=== PATIENT | female | born 1950 | race Two or more races ===

== ENCOUNTER 2025-05-11 17:51 | Inpatient (IN) | payer OTHER ==
[~2025-05-11] VITALS: Ht 170.2 cm; Wt 116.5 kg
--- NOTE | 2025-05-11 18:03 | ED.PDOC ---
HPI Allergic reaction HPI Comments This is a 74 year old female BIBA presenting to the ED with chief complaint of tongue swelling. Patient reports that her tongue had started to swell about 1.5 hours ago, causing difficulty in swallowing at this time. Patient relays that she is unsure what caused the reaction today, but before, she had similar sym ptoms when taking Glipizide. Patient denies any SOB, urticaria, dizziness, N/V, chest pain, or itchiness. Time Seen by MD: 17:59 Reviewed Notes: Nurses Notes, Utility Mechanic Notes, Medications, Allergies Allergies: Coded Allergies: Glipizide (Verified Allergy, Intermediate, 05/11/25) Oxycodone (Verified Allergy, Unknown, 05/11/25) Information Source: Patient, Emergency Med Personnel Mode of Arrival: EMS Severity: Moderate Rash: None SOB: None Difficulty swallowing: Moderate Pruritus: None Timing: Hours Duration: Since onset Prehospital treatment: None Location: Tongue Exposed to: Unknown Developed: Difficult Swallowing, Throat Swelliing History of: Prior Similar Episodes Modyifying Factors: None Past Medical History PAST MEDICAL HISTORY: DM, High Lipids, HTN Past Medical History (Other): Bronchitis Surgical History: Appendectomy, , Tubal Ligation Surgical History (Other): Cataract surgery, neck surgery 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 Pertinent CONCRETE M[employer]ING [employer]ANT LABORER History Family History Family History: Reviewed,noncontributory to illness Social History Smoker: Non-Smoker Alcohol: Rarely Drugs: Denies Drug Use Lives In: Home Constitutional: denies: chills, diaphoresis, fatigue, fever, malaise, sweats, weakness, others EENTM: reports: others (Tongue swelling); denies: blurred vision, double vision, ear bleeding, ear discharge, ear drainage, ear pain, ear ringing, eye pain, eye redness, hearing loss, mouth pain, mouth swelling, nasal discharge, nose bleeding, nose congestion, nose pain, photophobia, tearing, throat pain, throat swelling, voice changes Respiratory: denies: cough, hemoptysis, orthopnea, SOB at rest, shortness of breath, SOB with excertion, stridor, wheezing, others Cardiovascular: denies: chest pain, dizzy spells, diaphoresis, Dyspnea on exertion, edema, irregular heart beat, left arm pain, lightheadedness, palpitations, PND, syncope, others Gastrointestinal: denies: abdomen distended, abdominal pain, blood streaked bowels, constipated, diarrhea, dysphagia, difficulty swallowing, hematemesis, melena, nausea, poor appetite, poor fluid intake, rectal bleeding, rectal pain, vomiting, others Genitourinary: denies: abnormal vagina bleeding, burning, dyspareunia, dysuria, flank pain, frequency, hematuria, incontinence, pain, , vagina discharge, urgency, others Neurological: denies: dizziness, fainting, headache, left sided numbness, left sided weakness, numbness, paresthesia, pre-existing deficit, right sided numbness, right sided weakness, seizure, speech problems, tingling, tremors, weakness, others Musculoskeletal: denies: back pain, gout, joint pain, joint swelling, muscle pain, muscle stiffness, neck pain, others Integumetry: denies: bruises, change in color, change in hair/nails, dryness, laceration, lesions, lumps, rash, wounds, others Allergic/Immunocompromised: denies: Difficulty Healing, Frequent Infections, Hives, Itching, others Hematologic/Lymphatic: denies: anemia, blood clots, easy bleeding, easy bruising, swollen glands, others Endocrine: denies: excessive hunger, excessive sweating, excessive thirst, excessive urination, flushing, intolerance to cold, intolerance to heat, unexplained weight gain, unexplained weight loss, others Psychiatric: denies: anxiety, bipolar disorder, depression, hopeless, panic disorder, schizophrenia, sleepless, suicidal, others All Other Systems: Reviewed and Negative Physical Exam General Appearance: Moderate Distress HEENT: Pharynx Normal, TMs Normal, Other (Thickened tongue) Neck: Full Range of Motion, Non-Tender, Normal, Normal Inspection Respiratory: Chest Non-Tender, Lungs Clear, No Accessory Muscle Use, No Respiratory Distress, Normal Breath Sounds Cardiovascular: No Edema, No JVD, No Murmur, No Gallop, Normal Peripheral Pulses, Regular Rate/Rhythm Breast Exam: Deferred Gastrointestinal: No Organomegaly, Non Tender, No Pulsatile Mass, Normal Bowel Sounds, Soft Genitalia: Deferred Pelvic: Deferred Rectal: Deferred Extremities: No calf tenderness, Normal capillary refill, Normal inspection, Normal range of motion, Non-tender, No pedal edema Musculoskeletal : Apperance: Normal Neurologic: Alert, business performance analyst II-XII nml as Tested, No Motor Deficits, Normal Affect, Normal Mood, No Sensory Deficits Cerebellar Function: Normal Reflexes: Normal Skin: Dry, Normal Color, Warm Lymphatic: No Adenopathy Was a procedure done? Was a procedure done?: No Differential diagnosis (all) Differential Diagnosis: Anaphylaxis, Angioedema, Drug Reaction, Urticaria X-Ray, Labs, Meds, VS Vital Signs Date Time Temp Pulse Resp B/P (MAP) Pulse Ox O2 Delivery O2 Flow Rate FiO2 05/11/25 19:30 98.8 90 12 160/101 (120) 96 98.8 05/11/25 18:32 84 14 95 Room Air* 0 21 05/11/25 18:29 98.3 84 14 180/80 (113) 95 98.3 05/11/25 17:57 98.1 87 16 179/85 100 98.1 05/11/25 17:51 113 Lab Test 05/11/25 18:27 Range/Units White Blood Count 7.5 4.4-10.8 10^3/uL Red Blood Count 5.14 4.0-5.20 10^6/uL Hemoglobin 14.0 12.2-16.2 g/dL Hematocrit 41.8 36.0-46.0 % Mean Corpuscular Volume 81.2 80.0-100.0 fL Mean Corpuscular Hemoglobin 27.3 L 28.0-32.0 pg Mean Corpuscular Hemoglobin Concent 33.6 32.0-36.0 g/dL Red Cell Distribution Width 14.1 11.8-14.3 % Platelet Count 252 140-450 10^3/uL Mean Platelet Volume 8.6 6.9-10.8 fL Neutrophils (%) (Auto) 64.0 37.0-80.0 % Lymphocytes (%) (Auto) 23.8 10.0-50.0 % Monocytes (%) (Auto) 6.4 0.0-12.0 % Eosinophils (%) (Auto) 4.6 0.0-7.0 % Basophils (%) (Auto) 1.2 0.0-2.0 % Neutrophils # (Auto) 4.8 1.6-8.6 10 ^3/uL Lymphocytes # (Auto) 1.8 0.4-5.4 10 ^3/uL Monocytes # (Auto) 0.5 0-1.3 10 ^3/uL Eosinophils # (Auto) 0.3 0-0.8 10 ^3/uL Basophils # (Auto) 0.1 0-0.2 10 ^3/uL Nucleated Red Blood Cells 0.1 % Sodium Level 141 136-145 mmol/L Potassium Level 3.6 3.5-5.1 mmol/L Chloride Level 104 98-107 mmol/L Carbon Dioxide Level 28 20-31 mmol/L Anion Gap 9 5-15 Blood Urea Nitrogen 10 9-23 mg/dL Creatinine 0.95 0.550-1.02 mg/dL Glomerular Filtration Rate Calc 64 >90 mL/min BUN/Creatinine Ratio 10.5 10.0-20.0 Serum Glucose 202 H 74-106 mg/dL Calcium Level 9.3 8.7-10.4 mg/dL Current Medications Medications (Trade) Dose Ordered Sig/Meme Route Start Time Stop Time Status Last Admin Sodium Chloride 500 ml @ 500 mls/hr Q1H ONCE IV 05/11/25 18:15 05/11/25 19:14 DC 05/11/25 18:20 Methylprednisolone Sodium Succinate (Solu Medrol) 125 mg ONCE ONCE IV 05/11/25 18:15 05/11/25 18:16 DC 05/11/25 18:20 Famotidine (Pepcid Injection) 20 mg ONCE ONCE IV 05/11/25 18:15 05/11/25 18:16 DC 05/11/25 18:20 IV Hep-Lock was established The patient was given 500 cc normal saline. The patient was given Solu-Medrol 125 mg IV push The patient was given Pepcid 20 mg IV push At this time, the CBC is within normal limits The chemistry panel is within normal limits The patient is being admitted at this time Images Reviewed?: Images reviewed and evaluated by me Time of 1ST Reevaluation: 20:14 Reevaluation 1ST: Unchanged Patient Education/Counseling: Diagnosis, Treatment, Prognosis Family Education/Counseling: No Family Present SEPSIS Sepsis Screen Physician Orders Heplock Iv (05/11/25 18:15) Steam And Gas Turbine Assembler (05/11/25 18:15) Blood Pressure (05/11/25 18:15) Pulse Oximetry (05/11/25 18:15) Vital Signs Date Time Temp Pulse Resp B/P (MAP) Pulse Ox O2 Delivery O2 Flow Rate FiO2 05/11/25 19:30 98.8 90 12 160/101 (120) 96 98.8 05/11/25 18:32 84 14 95 Room Air* 0 21 05/11/25 18:29 98.3 84 14 180/80 (113) 95 98.3 05/11/25 17:57 98.1 87 16 179/85 100 98.1 05/11/25 17:51 113 Laboratory Tests Test 05/11/25 18:27 White Blood Count 7.5 10^3/uL (4.4-10.8) Medications Medications Dose Ordered Sig/Meme Route Start Time Stop Time Status Last Admin Dose Admin Famotidine 20 mg ONCE ONCE IV 05/11/25 18:15 05/11/25 18:16 DC 05/11/25 18:20 Methylprednisolone Sodium Succinate 125 mg ONCE ONCE IV 05/11/25 18:15 05/11/25 18:16 DC 05/11/25 18:20 Sodium Chloride 500 ml @ 500 mls/hr Q1H ONCE IV 05/11/25 18:15 05/11/25 19:14 DC 05/11/25 18:20 Departure 1 Departure Time of Disposition: 20:13 Impression: Primary Impression: Severe allergic reaction Qualified Codes: T78.40XA - Allergy, unspecified, initial encounter Disposition: ADMITTED INPATIENT Admit to: Tele Condition: Fair Critical Care Note Critical Care Time?: Yes (45 min-critical care time only) Stability Stability form required: Yes Unstable for transfer: Telemetry monitoring (Telemetry monitoring required), ED Physician Assesment (Clinical assesment) Heart Score Heart Score: Heart Score Response (Comments) Value History N/A 0 EKG N/A 0 Age N/A 0 Risk Factors N/A 0 Troponin N/A 0 Total 0 I personally scribed for JOÃO AQUINO MD ([email or web address]) on 05/11/25 at 18:03. Electronically submitted by Contreras Reaves ([email or web address]). JOÃO AQUINO MD May 11, 2025 18:03
[2025-05-11] MEDS: SODIUM CHLORIDE 0.9% 500 ML IV ONE (18:20)
[2025-05-11] MEDS: methylPREDNISolone SOD SUCC 125 MG/2 ML VL IV ONE (18:20)
[2025-05-11] MEDS: FAMOTIDINE (10MG/ML) 2ML VL IV ONE (18:20)
[2025-05-11 18:32] VITALS: PULSE 84; RESP 14; O2SAT 95
[2025-05-11 18:40] LABS: Nucleated Red Blood Cells % 0.1 %
[2025-05-11 18:41] LABS: Hematocrit 41.8 % (36.0-46.0); Hemoglobin 14.0 g/dL (12.2-16.2); Mean Corpuscular Hemoglobin 27.3 pg (28.0-32.0); Mean Corpuscular Volume 81.2 fL (80.0-100.0)
[2025-05-11 18:49] LABS: Chloride 104 mmol/L (98-107); Potassium 3.6 mmol/L (3.5-5.1); Sodium 141 mmol/L (136-145)
[2025-05-11 18:51] LABS: Anion Gap 9 (5-15); Calcium 9.3 mg/dL (8.7-10.4); Carbon Dioxide 28 mmol/L (20-31)
[2025-05-11 18:56] LABS: BUN/Creatinine Ratio 10.5 (10.0-20.0); Blood Urea Nitrogen 10 mg/dL (9-23); Glucose 202 mg/dL (74-106)
[2025-05-11 20:55] VITALS: BP 180/85; PULSE 91; RESP 17; TEMP 97.8; O2SAT 93
[2025-05-11] MEDS: ONDANSETRON HCL 4 MG/2 ML VIAL IV ONE (21:34)
[2025-05-11] MEDS: MORPHINE SULFATE 4 MG/ML SYR/VIAL IV ONE (21:35)
--- NOTE | 2025-05-11 22:51 | DVHHPRES ---
History of Present Illness Resident Creating Document: LEXIE LOJA RESIDENT History of Present Illness Sandrine Calderon is a 74-year-old female with past medical history of diabetes mellitus, dyslipidemia, hypertension who came to the ED with chief complaints of swollen tongue which started yesterday , which was associated with itchiness and lip swelling. patient denies eating anything out of the ordinary, states that she took ibuprofen before having the symptoms. She also reported that she took 2 Benadryl after the tongue swelling but did not work and that patient could not swallow properly. Patient does state that she has seasonal sinusitis, allergic Patient states that she lives in the [place] but now has came here to her daughter's house. She reports having a surgery done on the right ankle on April 02, for which pins were placed and patient was receiving Dilaudid 3 times a day. As per daughter patient took Mounjaro a month ago and restarted Mounjaro yesterday increase dose to 7.5 mg. Patient is admitted for further management. Past medical history : diabetes mellitus, dyslipidemia, hypertension past surgical history: Appendectomy, , Tubal Ligation, Cataract surgery, neck surgery Family history: Reviewed, noncontributory Personal history: Denies drinking, smoking, drug use Lives with: Family PCP: Dr. Bonds Review of Systems Constitutional: No: Fever, Chills, Sweats, Weakness, Malaise, Other Eyes: No: Pain, Vision change, Conjunctivae inflammation, Eyelid inflammation, Other, Redness ENT: No: Ear pain, Ear discharge, Nose pain, Nose discharge, Nose congestion, Mouth pain, Mouth swelling, Throat pain, Throat swelling, Other Respiratory: No: Cough, Dry, Shortness of breath, SOB with excertion, Wheezing, Hemoptysis, Pleuritic Pain, Sputum, Wheezing, Other Cardiovascular: No: Chest Pain, Palpitations, Orthopnea, Paroxysmal Noc. Dyspnea, Edema, Lt Headedness, Other Gastrointestinal: No: Nausea, Vomiting, Abdominal Pain, Diarrhea, Constipation, Melena, Hematochezia, Other Genitourinary: No Dysuria, No Frequency, No Incontinence, No Hematuria, No Retention, No Other Musculoskeletal: leg pain, foot pain; No: other, neck pain, shoulder pain, arm pain, back pain, hand pain Skin: No: Rash, Lesions, Jaundice, Bruising, Other Neurological: No: Weakness, Numbness, Incoordination, Change in speech, Confusion, Seizures, Other Allergies: Coded Allergies: Glipizide (Verified Allergy, Intermediate, 05/11/25) Oxycodone (Verified Allergy, Unknown, 05/11/25) Exam Vital Signs Vital Signs Date Time Temp Pulse Resp B/P (MAP) Pulse Ox O2 Delivery O2 Flow Rate FiO2 05/11/25 22:23 88 18 186/94 05/11/25 21:30 93 05/11/25 20:55 97.8 97.8 05/11/25 19:30 Room Air* 0 21 Exam General: Patient alert and oriented in person, place and time. Patient following commands. In mild distress HEENT: Normocephalic, atraumatic, moist mucous membranes, mild tongue swelling, uvula midline, Respiratory/pulmonary: Clear lungs bilaterally, vesicular murmurs present in almost all lung barboza, no associated crackles or wheezes. Cardiovascular: Normal heart sounds S1 and S2 with no associated murmurs Abdomen: Abdomen nondistended, there is no pain to palpation in any of the abdominal quadrants, no palpable masses. Extremities: There is no peripheral edema present at the lower extremities. Peripheral Pulses: 3+ Radial (R). 3+ Radial (L). 3+ Dorsalis pedis (R). 3+ Dorsalis pedis(L) Skin: No rashes or pruritus, there is no sacral edema present at this time. Neurological: Intact cranial nerves with no focal neurologic deficits Labs/Xrays Labs Test 05/11/25 18:27 Range/Units White Blood Count 7.5 4.4-10.8 10^3/uL Red Blood Count 5.14 4.0-5.20 10^6/uL Hemoglobin 14.0 12.2-16.2 g/dL Hematocrit 41.8 36.0-46.0 % Mean Corpuscular Volume 81.2 80.0-100.0 fL Mean Corpuscular Hemoglobin 27.3 L 28.0-32.0 pg Mean Corpuscular Hemoglobin Concent 33.6 32.0-36.0 g/dL Red Cell Distribution Width 14.1 11.8-14.3 % Platelet Count 252 140-450 10^3/uL Mean Platelet Volume 8.6 6.9-10.8 fL Neutrophils (%) (Auto) 64.0 37.0-80.0 % Lymphocytes (%) (Auto) 23.8 10.0-50.0 % Monocytes (%) (Auto) 6.4 0.0-12.0 % Eosinophils (%) (Auto) 4.6 0.0-7.0 % Basophils (%) (Auto) 1.2 0.0-2.0 % Neutrophils # (Auto) 4.8 1.6-8.6 10 ^3/uL Lymphocytes # (Auto) 1.8 0.4-5.4 10 ^3/uL Monocytes # (Auto) 0.5 0-1.3 10 ^3/uL Eosinophils # (Auto) 0.3 0-0.8 10 ^3/uL Basophils # (Auto) 0.1 0-0.2 10 ^3/uL Nucleated Red Blood Cells 0.1 % Sodium Level 141 136-145 mmol/L Potassium Level 3.6 3.5-5.1 mmol/L Chloride Level 104 98-107 mmol/L Carbon Dioxide Level 28 20-31 mmol/L Anion Gap 9 5-15 Blood Urea Nitrogen 10 9-23 mg/dL Creatinine 0.95 0.550-1.02 mg/dL Glomerular Filtration Rate Calc 64 >90 mL/min BUN/Creatinine Ratio 10.5 10.0-20.0 Serum Glucose 202 H 74-106 mg/dL Calcium Level 9.3 8.7-10.4 mg/dL SEPSIS Sepsis Screen Date sepsis recognized/suspect: May 11, 2025 Time Sepsis recognized/suspect: 2019 Recent Procedure: No On Antibiotic Therapy: No Respiratory Rate >20: No Heart Rate >90: No Temp<36 C (96.8 F) or >38.3 C: No SBP <90 or MAP <65 mmHG: No New Acute Mental Status Change: No Is the patient on CPAP, BIPAP,: No Physician Orders Heplock Iv (05/11/25 18:15) Water Superintendent (05/11/25 18:15) Blood Pressure (05/11/25 18:15) Pulse Oximetry (05/11/25 18:15) Admit (05/11/25 22:48) Allergies (05/11/25 22:48) 2 Gm Sodium Diet (05/12/25 Breakfast) Ondansetron Hcl (Zofran) (05/11/25 23:00) Docusate Sodium Capsule (Colace Capsule) (05/11/25 23:00) Complete Blood Count (05/12/25 04:00) Comprehensive Metabolic Panel (05/12/25 04:00) Condition: Serious (05/11/25 22:48) Acetaminophen Tablet (Tylenol Tablet) (05/11/25 23:00) Bedrest With Bathroom Privileg (05/11/25 22:48) Vital Signs Date Time Temp Pulse Resp B/P (MAP) Pulse Ox O2 Delivery O2 Flow Rate FiO2 05/11/25 22:23 88 18 186/94 05/11/25 21:48 190/94 05/11/25 21:35 89 18 190/94 05/11/25 21:30 90 16 190/94 (126) 93 05/11/25 20:55 97.8 91 17 180/85 (116) 93 97.8 05/11/25 20:00 91 05/11/25 19:30 Room Air* 0 21 05/11/25 19:30 98.8 90 12 160/101 (120) 96 98.8 05/11/25 18:32 84 14 95 Room Air* 0 21 05/11/25 18:29 98.3 84 14 180/80 (113) 95 98.3 05/11/25 17:57 98.1 87 16 179/85 100 98.1 05/11/25 17:51 113 Laboratory Tests Test 05/11/25 18:27 White Blood Count 7.5 10^3/uL (4.4-10.8) Medications Medications Dose Ordered Sig/Meme Route Start Time Stop Time Status Last Admin Dose Admin Clonidine HCl 0.2 mg ONCE ONCE PO 05/11/25 21:45 05/11/25 21:46 DC 05/11/25 21:48 0.2 MG Famotidine 20 mg ONCE ONCE IV 05/11/25 18:15 05/11/25 18:16 DC 05/11/25 18:20 20 MG Methylprednisolone Sodium Succinate 125 mg ONCE ONCE IV 05/11/25 18:15 05/11/25 18:16 DC 05/11/25 18:20 125 MG Morphine Sulfate 4 mg ONCE ONCE IV 05/11/25 21:00 05/11/25 21:01 DC 05/11/25 21:35 4 MG Ondansetron HCl 4 mg ONCE ONCE IV 05/11/25 21:00 05/11/25 21:01 DC 05/11/25 21:34 4 MG Sodium Chloride 500 ml @ 500 mls/hr Q1H ONCE IV 05/11/25 18:15 05/11/25 19:14 DC 05/11/25 18:20 500 MLS/HR Assessment/Plan Assessment/Plan Assessment and plan # angioedema, unknown trigger # allergic reaction, known trigger - avoid lisinopril, losartan - methylprednisolone was given in the ER along with famotidine - Patient advised to avoid trigger # hypertension - continue home Meds # uncontrolled diabetes mellitus HbA1c 10.1 - moderate insulin sliding scale # hyperlipidemia - continue home meds # isolated ALP elevation - Monitor PPI prophylaxis: Protonix Goals of care addressed with the patient for more than 31 minutes: Full code status Case discussed with , patient and nurse Plan discussed with: Patient My Orders Orders - LEXIE LOJA RESIDENT Procedure Category Date Status Time Admit ADMIT 05/11/25 Transmitted 22:48 Allergies [facility] 05/11/25 Transmitted 22:48 2 Gm Sodium Diet DIET 05/12/25 Transmitted Breakfast Ondansetron Hcl PHA 05/11/25 Transmitted (Zofran) 23:00 Docusate Sodium PHA 05/11/25 Transmitted Capsule (Colace 23:00 Complete Blood Count LAB 05/12/25 Verified 04:00 Comprehensive LAB 05/12/25 Verified Metabolic Panel 04:00 Condition: Serious [facility] 05/11/25 Transmitted 22:48 Acetaminophen Tablet PHA 05/11/25 Transmitted (Tylenol Tablet) 23:00 Bedrest With Bathroom [facility] 05/11/25 Transmitted Privileg 22:48 Date of Service: May 11, 2025 Billing Provider: DONALD DE MD Common Visit Codes: [id number] INP/OBS CARE (HIGH) Secondary Visit Codes: [id number] CARE PLAN 30 MINUTES LEXIE LOJA RESIDENT May 11, 2025 22:51 DEVI GRANT RESIDENT May 12, 2025 09:24
[2025-05-11 23:00] VITALS: BP 187/70; PULSE 88; RESP 17; TEMP 97.9; O2SAT 90
[2025-05-11] MEDS ORDERED: DOCUSATE SOD 100 MG CAP PO PRN (23:00)
[2025-05-11] MEDS ORDERED: ONDANSETRON HCL 4 MG/2 ML VIAL IV PRN (23:00)
[2025-05-12] VITALS (11 sets, daily range): BP systolic 122–167; BP diastolic 62–86; PULSE 71–98; RESP 12–20; TEMP 97.7–98.4; O2SAT 89–98
[2025-05-12] MEDS: hydrALAZINE HCL 20 MG/ML VL IV PRN (01:35)
--- NOTE | 2025-05-12 02:50 | DVH ---
CHEST RADIOGRAPH Indication: rule out obstruction Technique: Single frontal view of the chest was obtained COMPARISON: None FINDINGS: Lines and Tubes: None Lungs: Diffuse increased prominence of the pulmonary vasculature and interstitium. No evidence of foc al consolidation. Pleura: No effusion. No pneumothorax. Cardiomediastinal contours: Unremarkable Bones: Unremarkable IMPRESSION: 1. Pulmonary vascular congestion.
[2025-05-12 04:14] LABS: Hematocrit 42.7 % (36.0-46.0); Hemoglobin 14.2 g/dL (12.2-16.2); Mean Corpuscular Hemoglobin 27.4 pg (28.0-32.0); Mean Corpuscular Volume 82.7 fL (80.0-100.0); Nucleated Red Blood Cells % 0.1 %
[2025-05-12 04:45] LABS: Alanine Aminotransferase 19 U/L (7-40); Albumin 3.8 g/dL (3.2-4.8); Alkaline Phosphatase 128 U/L (46-116); Anion Gap 11 (5-15); BUN/Creatinine Ratio 20.4 (10.0-20.0); Bilirubin, Total 0.5 mg/dL (0.2-1.0); Blood Urea Nitrogen 20 mg/dL (9-23); Calcium 9.2 mg/dL (8.7-10.4); Carbon Dioxide 23 mmol/L (20-31); Chloride 104 mmol/L (98-107); Potassium 4.5 mmol/L (3.5-5.1); Sodium 138 mmol/L (136-145); Total Protein 6.4 g/dL (5.7-8.2)
[2025-05-12 04:54] LABS: Glucose 323 mg/dL (74-106)
[2025-05-12] MEDS ORDERED: DEXTROSE (50%) 50ML SYRG IV PRN ×2 (08:15→13:45)
[2025-05-12 08:30] LABS: Urine Protein, UAD Negative (Negative)
--- NOTE | 2025-05-12 11:17 | DVHPN2 ---
Subjective The patient is seen and examined at bedside. Per patient she was taking losartan for long time without any allergic reaction. She also just took ibuprofen and couple hours after that her tongue swollen up to the point that she can not even brief and her throat close up. She did not know she had any allergy to ibuprofen. Reviewed: Care Plan, H&P, Labs, Medications, Previous Orders, Radiology Changes from previous H/P or p: No Changes Eyes: No Pain, No Vision change, No Conjunctivae inflammation, No Eyelid inflammation, No Other, No Redness ENT: No Ear pain, No Ear discharge, No Nose pain, No Nose discharge, No Nose congestion, No Mouth pain, No Mouth swelling, No Throat pain, No Throat swelling, No Other Cardiovascular: No Chest Pain, No Palpitations, No Orthopnea, No Paroxysmal Noc. Dyspnea, No Edema, No Lt Headedness, No Other Respiratory: No Cough, No Dry, No Shortness of breath, No SOB with excertion, No Wheezing, No Hemoptysis, No Pleuritic Pain, No Sputum, No Other Gastrointestinal: No Nausea, No Vomiting, No Abdominal Pain, No Diarrhea, No Constipation, No Melena, No Hematochezia, No Other Genitourinary: No Dysuria, No Frequency, No Incontinence, No Hematuria, No Retention, No Other Musculoskeletal: No other, No neck pain, No shoulder pain, No arm pain, No back pain, No hand pain; leg pain, foot pain Skin: No Rash, No Lesions, No Jaundice, No Bruising, No Other Objective Vitals Vital Signs Date Time Temp Pulse Resp B/P (MAP) Pulse Ox O2 Delivery O2 Flow Rate FiO2 05/12/25 09:00 97.9 97 18 135/62 (86) 89 97.9 05/11/25 19:30 Room Air* 0 21 General Appearance: Alert, Oriented X3, Cooperative, No acute distress HEENT: Atraumatic, PERRLA, EOMI, Mucous membr. moist/pink Neck: Supple Lungs: Clear to auscultation, Normal air movement Cardiovascular: Regular rate, Normal S1, Normal S2, No murmurs, Gallops, Rubs Abdomen: Normal bowel sounds, Soft, No tenderness Neuro: Cranial nerves 3-12 NL Psych/Mental Status: Mental status NL Medications Current Medications Medications Dose Ordered Sig/Meme Route Start Time Stop Time Status Last Admin Dose Admin Ondansetron HCl 4 mg Q4HP PRN IV 05/11/25 23:00 Docusate Sodium 100 mg BIDPRN PRN PO 05/11/25 23:00 Acetaminophen 650 mg Q6HP PRN PO 05/11/25 23:00 Hydralazine HCl 5 mg ONCE PRN IV 05/12/25 01:15 05/12/25 01:35 5 MG Pantoprazole Sodium 40 mg DAILY IV 05/12/25 10:00 UNV Diagnostic Test (Pha) 1 strip ACHS 05/12/25 11:30 UNV Insulin Human Regular HS SC 05/12/25 22:00 UNV Insulin Human Regular AC SC 05/12/25 11:30 UNV Dextrose 50 ml UD PRN IV 05/12/25 08:15 UNV Laboratory Results Laboratory Tests 05/12/25 03:39 Chemistry Test 05/11/25 18:27 05/12/25 03:39 Calcium Level 9.3 mg/dL (8.7-10.4) 9.2 mg/dL (8.7-10.4) Albumin 3.8 g/dL (3.2-4.8) Total Protein 6.4 g/dL (5.7-8.2) LFT Test 05/12/25 03:39 Alanine Aminotransferase (ALT) 19 U/L (7-40) Alkaline Phosphatase 128 U/L (46-116) H Aspartate Amino Transferase (AST) 16 U/L (13-40) Total Bilirubin 0.5 mg/dL (0.2-1.0) HgA1c, TSH Test 05/12/25 03:39 Hemoglobin A1c 10.1 % A1C (<5.7) H Thyroid Stimulating Hormone (TSH) 0.36 uIU/mL (0.55-4.78) L Urinalysis Test 05/12/25 08:05 Urine Color Yellow (Yellow) Urine Clarity Clear (Clear) Urine pH 5.5 (5.0-9.0) Urine Specific [place] 1.027 (1.001-1.035) Urine Protein Negative (Negative) Urine Ketones Negative (Negative) Urine Blood Negative /uL (Negative) Urine Nitrite Negative (Negative) Urine Bilirubin Negative (Negative) Urine Urobilinogen Normal mg/dL (Negative) Urine Leukocyte Esterase Negative /uL (Negative) Urine RBC 1 /hpf (0 - 4) Urine Microscopic WBC 1 /HPF (0-5) Urine Squamous Epithelial Cells Few /hpf (<5) Urine Bacteria Few /hpf (None Seen) H Urine Mucus Few (None Seen) Urine Glucose 4+ mg/dL (Normal) H Labs and/or images reviewed: Labs reviewed by me Assessment/Plan Assessment/Plan Angioedema probable related to ibuprofen/?losartan Hypertension Diabetes type 2 Hyperlipidemia Continuing current management. The patient told still swollen a little bit. I will continuing Solu-Medrol and Benadryl. We will start the patient on sliding scale insulin with moderate scale We will stop losartan and start the patient on Norvasc. We will put in a allergy with ibuprofen and possible losartan. Plan discussed with: Patient Date of Service: May 12, 2025 Billing Provider: FRANNY BETTENCOURT MD Common Visit Codes: [id number] INP/OBS CARE(HIGH) FRANNY BETTENCOURT MD May 12, 2025 11:17
[2025-05-12] MEDS ORDERED: InsuLIN REG 1unit/0.01ml Soln (100units/ml) SC SCH ×2 (11:30→22:00)
[2025-05-12] MEDS ORDERED: ACCU-CHEK COMFORT CURVE STRIP VI SCH (11:30)
[2025-05-12] MEDS ORDERED: ONDANSETRON HCL 4 MG/2 ML VIAL IV PRN (13:30)
[2025-05-12] MEDS: FLUCONAZOLE 100 MG TAB PO ONE (14:35)
[2025-05-12] MEDS: PANTOPRAZOLE 40 MG/10 ML VIAL INJ IV SCH (14:35)
[2025-05-12] MEDS: HYDROcodone-ACET 5/325MG TAB PO PRN (14:36)
[2025-05-12] MEDS: InsuLIN REG 1unit/0.01ml Soln (100units/ml) SC SCH (17:56)
[2025-05-12] MEDS: ACCU-CHEK COMFORT CURVE STRIP VI SCH (17:56)
[2025-05-12] MEDS: MORPHINE SULFATE INJ 2 MG/ml SYRG IV PRN (18:48)
[2025-05-13] VITALS (7 sets, daily range): BP systolic 114–157; BP diastolic 72–89; PULSE 83–91; RESP 18–20; TEMP 36.8; O2SAT 93–96
[2025-05-13 06:44] LABS: Hematocrit 39.7 % (36.0-46.0); Hemoglobin 13.3 g/dL (12.2-16.2); Mean Corpuscular Hemoglobin 27.2 pg (28.0-32.0); Mean Corpuscular Volume 81.1 fL (80.0-100.0); Nucleated Red Blood Cells % 0.1 %
[2025-05-13 06:56] LABS: Anion Gap 11 (5-15); Carbon Dioxide 26 mmol/L (20-31); Chloride 104 mmol/L (98-107); Sodium 141 mmol/L (136-145)
[2025-05-13 06:58] LABS: Calcium 8.7 mg/dL (8.7-10.4)
[2025-05-13 07:00] LABS: Potassium 3.4 mmol/L (3.5-5.1)
[2025-05-13 07:02] LABS: Glucose 242 mg/dL (74-106)
[2025-05-13 07:03] LABS: BUN/Creatinine Ratio 17.4 (10.0-20.0); Blood Urea Nitrogen 15 mg/dL (9-23)
[2025-05-13] MEDS: ACETAMINOPHEN 325 MG TAB PO PRN (12:55)
--- NOTE | 2025-05-13 15:05 | DVHPN2 ---
Subjective The patient is seen and examined at bedside. Per patient she was taking losartan for long time without any allergic reaction. She also just took ibuprofen and couple hours after that her tongue swollen up to the point that she can not even brief and her throat close up. She did not know she had any allergy to ibuprofen. Reviewed: Care Plan, H&P, Labs, Medications, Previous Orders, Radiology Eyes: No Pain, No Vision change, No Conjunctivae inflammation, No Eyelid inflammation, No Other, No Redness ENT: No Ear pain, No Ear discharge, No Nose pain, No Nose discharge, No Nose congestion, No Mouth pain, No Mouth swelling, No Throat pain, No Throat swelling, No Other Cardiovascular: No Chest Pain, No Palpitations, No Orthopnea, No Paroxysmal Noc. Dyspnea, No Edema, No Lt Headedness, No Other Respiratory: No Cough, No Dry, No Shortness of breath, No SOB with excertion, No Wheezing, No Hemoptysis, No Pleuritic Pain, No Sputum, No Other Gastrointestinal: No Nausea, No Vomiting, No Abdominal Pain, No Diarrhea, No Constipation, No Melena, No Hematochezia, No Other Genitourinary: No Dysuria, No Frequency, No Incontinence, No Hematuria, No Retention, No Other Musculoskeletal: No other, No neck pain, No shoulder pain, No arm pain, No back pain, No hand pain; leg pain, foot pain Skin: No Rash, No Lesions, No Jaundice, No Bruising, No Other Objective Vitals Vital Signs Date Time Temp Pulse Resp B/P (MAP) Pulse Ox O2 Delivery O2 Flow Rate FiO2 05/13/25 13:00 98.7 90 18 126/78 (94) 95 98.7 05/13/25 08:00 Nasal Cannula* 2 28 Intake/Output Intake and Output 05/13/25 07:00 Intake Total 1300 ml Balance 1300 ml Intake Oral 1300 ml # Voids 4 General Appearance: Alert, Oriented X3, Cooperative, No acute distress HEENT: Atraumatic, PERRLA, EOMI, Mucous membr. moist/pink Neck: Supple Lungs: Clear to auscultation, Normal air movement Cardiovascular: Regular rate, Normal S1, Normal S2, No murmurs, Gallops, Rubs Abdomen: Normal bowel sounds, Soft, No tenderness Neuro: Cranial nerves 3-12 NL Psych/Mental Status: Mental status NL Medications Current Medications Medications Dose Ordered Sig/Meme Route Start Time Stop Time Status Last Admin Dose Admin Docusate Sodium 100 mg BIDPRN PRN PO 05/11/25 23:00 Acetaminophen 650 mg Q6HP PRN PO 05/11/25 23:00 05/13/25 12:55 650 MG Hydralazine HCl 5 mg ONCE PRN IV 05/12/25 01:15 05/12/25 01:35 5 MG Pantoprazole Sodium 40 mg DAILY IV 05/12/25 10:00 05/13/25 09:44 40 MG Ondansetron HCl 4 mg Q6HPRN PRN IV 05/12/25 13:30 Amlodipine Besylate 5 mg DAILY PO 05/13/25 10:00 05/13/25 09:45 5 MG Morphine Sulfate 2 mg Q4HPRN PRN IV 05/12/25 13:30 05/13/25 02:50 2 MG Acetaminophen/ Hydrocodone Bitart 1 tab Q4HPRN PRN PO 05/12/25 13:30 05/12/25 20:35 1 TAB Diagnostic Test (Pha) 1 strip ACHS 05/12/25 17:00 05/13/25 12:13 1 STRIP Insulin Human Regular ACHS SC 05/12/25 17:00 05/13/25 12:36 4 UNITS Dextrose 50 ml UD PRN IV 05/12/25 13:45 Laboratory Results Laboratory Tests 05/13/25 04:27 Chemistry Test 05/13/25 04:27 Calcium Level 8.7 mg/dL (8.7-10.4) Urinalysis Test 05/12/25 08:05 Urine Color Yellow (Yellow) Urine Clarity Clear (Clear) Urine pH 5.5 (5.0-9.0) Urine Specific [place] 1.027 (1.001-1.035) Urine Protein Negative (Negative) Urine Ketones Negative (Negative) Urine Blood Negative /uL (Negative) Urine Nitrite Negative (Negative) Urine Bilirubin Negative (Negative) Urine Urobilinogen Normal mg/dL (Negative) Urine Leukocyte Esterase Negative /uL (Negative) Urine RBC 1 /hpf (0 - 4) Urine Microscopic WBC 1 /HPF (0-5) Urine Squamous Epithelial Cells Few /hpf (<5) Urine Bacteria Few /hpf (None Seen) H Urine Mucus Few (None Seen) Urine Glucose 4+ mg/dL (Normal) H Assessment/Plan Assessment/Plan Angioedema probable related to ibuprofen/?losartan Hypertension Diabetes type 2 Hyperlipidemia Continuing current management. The patient told still swollen a little bit. I will continuing Solu-Medrol and Benadryl. We will start the patient on sliding scale insulin with moderate scale We will stop losartan and start the patient on Norvasc. We will put in a allergy with ibuprofen and possible losartan. My Orders Orders - FRANNY BETTENCOURT MD Procedure Category Date Status Time Allergies [facility] 05/12/25 In Process 23:18 FRANNY BETTENCOURT MD May 13, 2025 15:05
[2025-05-13] MEDS ORDERED: METF-370 PO (15:06)
[2025-05-13] MEDS ORDERED: GLIP5TAB21 PO (15:06)
[2025-05-13] MEDS ORDERED: AML5T PO (16:49)
--- NOTE | 2025-05-13 16:51 | DVHDS2 ---
Discharge Summary Date of Admission May 11, 2025 at 22:48 Date of Discharge: May 13, 2025 Admitting Diagnosis # angioedema, unknown trigger # allergic reaction, known trigger # hypertension # uncontrolled diabetes mellitus HbA1c 10.1 # hyperlipidemia # ALP elevation Labs/Diagnostic Data: Laboratory Results Test 05/13/25 05:43 05/13/25 04:27 05/12/25 08:05 05/12/25 03:39 POC Glucose 244 mg/dl (70-106) White Blood Count 10.4 10^3/uL (4.4-10.8) Red Blood Count 4.89 10^6/uL (4.0-5.20) Hemoglobin 13.3 g/dL (12.2-16.2) Hematocrit 39.7 % (36.0-46.0) Mean Corpuscular Volume 81.1 fL (80.0-100.0) Mean Corpuscular Hemoglobin 27.2 pg (28.0-32.0) Mean Corpuscular Hemoglobin Concent 33.5 g/dL (32.0-36.0) Red Cell Distribution Width 14.2 % (11.8-14.3) Platelet Count 235 10^3/uL (140-450) Mean Platelet Volume 8.9 fL (6.9-10.8) Neutrophils (%) (Auto) 71.1 % (37.0-80.0) Lymphocytes (%) (Auto) 19.6 % (10.0-50.0) Monocytes (%) (Auto) 5.9 % (0.0-12.0) Eosinophils (%) (Auto) 2.5 % (0.0-7.0) Basophils (%) (Auto) 0.9 % (0.0-2.0) Neutrophils # (Auto) 7.4 10 ^3/uL (1.6-8.6) Lymphocytes # (Auto) 2.0 10 ^3/uL (0.4-5.4) Monocytes # (Auto) 0.6 10 ^3/uL (0-1.3) Eosinophils # (Auto) 0.3 10 ^3/uL (0-0.8) Basophils # (Auto) 0.1 10 ^3/uL (0-0.2) Nucleated Red Blood Cells 0.1 % Sodium Level 141 mmol/L (136-145) Potassium Level 3.4 mmol/L (3.5-5.1) Chloride Level 104 mmol/L (98-107) Carbon Dioxide Level 26 mmol/L (20-31) Anion Gap 11 (5-15) Blood Urea Nitrogen 15 mg/dL (9-23) Creatinine 0.86 mg/dL (0.550-1.02) Glomerular Filtration Rate Calc 72 mL/min (>90) BUN/Creatinine Ratio 17.4 (10.0-20.0) Serum Glucose 242 mg/dL (74-106) Calcium Level 8.7 mg/dL (8.7-10.4) Urine Color Yellow (Yellow) Urine Clarity Clear (Clear) Urine pH 5.5 (5.0-9.0) Urine Specific [place] 1.027 (1.001-1.035) Urine Protein Negative (Negative) Urine Ketones Negative (Negative) Urine Blood Negative /uL (Negative) Urine Nitrite Negative (Negative) Urine Bilirubin Negative (Negative) Urine Urobilinogen Normal mg/dL (Negative) Urine Leukocyte Esterase Negative /uL (Negative) Urine RBC 1 /hpf (0 - 4) Urine Microscopic WBC 1 /HPF (0-5) Urine Squamous Epithelial Cells Few /hpf (<5) Urine Bacteria Few /hpf (None Seen) Urine Mucus Few (None Seen) Urine Glucose 4+ mg/dL (Normal) Hemoglobin A1c 10.1 % A1C (<5.7) Total Bilirubin 0.5 mg/dL (0.2-1.0) Aspartate Amino Transferase (AST) 16 U/L (13-40) Alanine Aminotransferase (ALT) 19 U/L (7-40) Alkaline Phosphatase 128 U/L (46-116) Total Protein 6.4 g/dL (5.7-8.2) Albumin 3.8 g/dL (3.2-4.8) Thyroid Stimulating Hormone (TSH) 0.36 uIU/mL (0.55-4.78) Other Laboratory Tests 05/13/25 04:27 Brief Hx & Hospital Course: This is a 74 years old female with past medical history of diabetes, dyslipidemia, hypertension, surgery of the right ankle recently in April 02/2025 came into emergency department complain of shortness for breath and swollen of her tongue starting one day prior to this admission. The patient also complained of itchiness and lip swelling. The patient feel that she can not breathe. The patient apparently took ibuprofen prior to this tongue swollen. The patient took ibuprofen before and never had this reaction before. The patient took two Benadryl after that but the tongue swelling is not coming down so she decided to come to hospital for further evaluation. The patient also take losartan. The patient said she takes losartan for almost five years without any problem. The patient also was found to have hemoglobin A1c of 10.1. According to the patient she took Insmed and is worked very well for her however she left Insmed in her hometown [place] and miss a dose of it before she come down to [place] to stay with her daughter. The patient also had some season allergy and usually takes antihistamine for it. The patient did not eat any exotic food or any new fruit in her house. The patient was given Solu- Medrol IV, the patient was given Benadryl and antihistamine. The patient subsequently doing well. I change her hypertensive medication to amlodipine 5 mg one tablet p.o. daily. The patient has seemed to tolerated. The patient said that her diabetes usually controlled with Mounjaro shots. Patient had tried glipizide and metformin before but can not tolerate. In fact she thinks she allergic to glipizide. Today the patient tongue is no longer swelling. The patient is able to tolerate diet. The patient takes new hypertensive medication without any problem. I told the patient she can not take any ibuprofen or NSAIDs. Also stay away from losartan or ARB medication or SHADY inhibitor. I also give her a EpiPen. I advised her to follow up with primary care physician to get referral to curtain drier to try to find out what allergy she had. Activity as tolerated. Diet per home diet. Recommend low-salt low-cholesterol carb controlled diet. I also called and talk with her daughter because the patient said sometimes she forgets what she discuss about with me. Physical exam: HEENT: Normocephalic atraumatic pupils equal react to light and accommodation. Extraocular muscles intact, conjunctiva pink, oropharynx moist, no thrush, no exudate. Lymphatic: No lymphadenopathy Cardiovascular exam: S1, S2 was heard. No murmurs, rubs, gallops Lung: Clear on auscultation bilaterally, no wheeze, rale, rhonchi. GI: Abdominal soft, nondistended, nontenderness, positive bowel sounds. Extremity: No crepitus, cyanosis, edema. Pedal pulses present bilateral. Full range of motion. Skin: Normal turgor, no rash. Psych: Alert, oriented x3. Neurology: No focal deficits, cranial nerve II to XII grossly intact. This medical document was created using an electronic medical record system with [employer] direct computerized dictation system. Although this document has been carefully reviewed, there may still be some phonetic and typographical errors. These areas are purely typographical due to imperfections of the software programs, and do not reflect any compromise in the patient's medical care. Condition at Discharge: Stable Final Diagnosis/Problems List # angioedema, probable secondary to ibuprofen and/or losartan # allergic reaction, known trigger # hypertension # uncontrolled diabetes mellitus HbA1c 10.1 # hyperlipidemia # ALP elevation Discharge Disposition: Home Discharge Instruct/Medications Diet: Cardiac 2g Na,low cholest Activity: No Restrictions, As Tolerated Follow Up/Referral: pcp 1-2 weeks curtain drier per schedule Medications: stop ibuprofen stop losartan resume all other meds Scheduled Amlodipine Besylate (Norvasc Tablet), 1 TAB PO DAILY Scheduled PRN Epinephrine (Anaphylaxis) (Auvi-Q), 0.1 MG IJ O PRN Hydrocodone-Acetaminophen (Hydrocodone Bitartrate/AC 5-325 mg), 1 TAB PO Q4HPRN PRN Discharge Statement: "Patient was advised to return to the ER or call 911 if any headaches, dizziness, shortness of breath, chest pain, abdominal pain, bleeding, fevers, or worsening of medical condition. Patient was counseled about treatment plan, medications, possible side effects, patientverbalized understanding. All questions were answered to the best of my ability. This discharge took greater then 30 minutes in planning, reviewing documentation, counseling the patient, and discussing with other team members." ASSESSMENT ASSESSMENT Assessment angioedema Date of Service: May 13, 2025 Billing Provider: FRANNY BETTENCOURT MD Common Visit Codes: 60470-PFM/OBS DISCH DAY >30min FRANNY BETTENCOURT MD May 13, 2025 16:51
[2025-05-13] MEDS ORDERED: EPIN0.1I11 IJ (16:52)
[2025-05-13] MEDS ORDERED: HYDR-4902 PO (16:57)
[2025-05-14] MEDS ORDERED: glipiZIDE 5 MG TAB PO SCH (07:00)
== END 2025-05-13 19:50 | disposition home or self-care (01) | DRG 916 ==
LOC: EDBD 17:51 → ER 17:51 → OVERFLOW 22:48 → TELE-WESTW 05-12 15:45
PROVIDERS: ADMIT Internal Medicine; ATTEND Internal Medicine
DX: T78.3XXA Angioneurotic edema, initial encounter (principal); B37.31 Acute candidiasis of vulva and vagina; E11.9 Type 2 diabetes mellitus without complications; E78.5 Hyperlipidemia, unspecified; I10 Essential (primary) hypertension; T39.315A Adverse effect of propionic acid derivatives, initial encounter; T78.49XA Other allergy, initial encounter; Z79.899 Other long term (current) drug therapy; Y84.8 Other medical procedures as the cause of abnormal reaction of the patient, or of later complication, without mention of misadventure at the time of the procedure; Y92.89 Other specified places as the place of occurrence of the external cause
CPT/HCPCS: 36415; 71045; 80048; 80053; 81001; 82962; 83036; 84443; 85025; 96361; 96374; 96375; 99291; G0378; J1815; J2405; J2470; J3490

== ENCOUNTER 2025-05-16 12:43 | Inpatient (IN) | payer OTHER ==
[~2025-05-16] VITALS: Ht 170.2 cm; Wt 100.0 kg
[~2025-05-16 12:43] MED LIST: AML5T PO; EPIN0.1I11 IJ; HYDR-4902 PO
--- NOTE | 2025-05-16 14:02 | ED.PDOC ---
Musculoskeletal HPI Comments This is a 74-year-old female with past medical history of hypertension, dyslipidemia and diabetes type [address] Spencer office due to bilateral lower limb swelling. Per patient, she had left ankle fracture on April 07, subsequently underwent open surgery (put stent and screw), had removed sutures around 2 weeks back, and had gradually developed bilateral lower limb swelling. She has also developed a wound on the left ankle (on sutures area), with scant amount of purulent discharge. She reports of bilateral lower limb discomfort and pain (more on the left side) which worsens with mobility. She denies fever, chest pain, shortness of breath, nausea, vomiting, or any bowel/bladder habit changes. Chief Complaint: Lower Extremity Time Seen by MD: 12:44 Reviewed Notes: Nurses Notes Allergies: Coded Allergies: Glipizide (Verified Allergy, Intermediate, 05/11/25) Ibuprofen (Verified Allergy, Unknown, 05/13/25) PER DR SG BLANTON VIA PHONE Losartan (Verified Allergy, Unknown, 05/13/25) PER DR SG BLANTON VIA PHONE Oxycodone (Verified Allergy, Unknown, 05/11/25) Home Meds Active Scripts Hydrocodone-Acetaminophen (Hydrocodone Bitartrate/AC 5-325 mg) 1 Tab Tab, 1 TAB PO Q4HPRN PRN, #20 TAB Prov:FRANNY BETTENCOURT MD 05/13/25 Epinephrine (Anaphylaxis) (Auvi-Q) 0.1 Mg/0.1 Ml Inj, 0.1 MG IJ O PRN for 1 Day, #1 INJ Prov:FRANNY BETTENCOURT MD 05/13/25 Amlodipine Besylate (NORVASC TABLET) 5 Mg Tb, 1 TAB PO DAILY, #30 TAB 5 Refills Prov:FRANNY BETTENCOURT MD 05/13/25 Mode of Arrival: Wheelchair Past Medical History PAST MEDICAL HISTORY: DM, High Lipids, HTN Surgical History: Appendectomy, , Tubal Ligation [employer]EWEL[employer] History: No Pertinent [employer] History Family History Family History: Reviewed,noncontributory to illness Social History Smoker: Non-Smoker Alcohol: Rarely Drugs: Denies Drug Use Lives In: Home Physical Exam General Appearance: No Apparent Distress, Normal HEENT: Normal ENT Inspection, Pharynx Normal, TMs Normal Neck: Full Range of Motion, Non-Tender, Normal, Normal Inspection Respiratory: Chest Non-Tender, Lungs Clear, No Accessory Muscle Use, No Respiratory Distress, Normal Breath Sounds Cardiovascular: No Edema, No JVD, No Murmur, No Gallop, Normal Peripheral Pulses, Regular Rate/Rhythm Breast Exam: Deferred Gastrointestinal: No Organomegaly, Non Tender, No Pulsatile Mass, Normal Bowel Sounds, Soft Genitalia: Deferred Pelvic: Deferred Rectal: Deferred Extremities: Calf tenderness, Normal capillary refill, Pedal edema, Swelling, Tender, Other (There is a small 1 x 2 cm open wound on the lateral surface of left ankle, with scant amount of purulent discharge) Musculoskeletal : Apperance: Normal Neurologic: Alert, business insight and analytics manager II-XII nml as Tested, No Motor Deficits, Normal Affect, Normal Mood, No Sensory Deficits Cerebellar Function: Normal Reflexes: Normal Skin: Dry, Normal Color, Warm Lymphatic: No Adenopathy Was a procedure done? Was a procedure done?: No Differential Diagnosis EXT Differential Diagnosis: Cellulitis, Deep Vein Thrombosis, Dislocation, Contusion, Arthritis X-Ray, Labs, Meds, VS Vital Signs Date Time Temp Pulse Resp B/P (MAP) Pulse Ox O2 Delivery O2 Flow Rate FiO2 05/16/25 12:47 98.0 82 16 143/92 96 98.0 Lab Test 05/16/25 14:00 Range/Units White Blood Count 7.3 # 4.4-10.8 10^3/uL Red Blood Count 5.33 H 4.0-5.20 10^6/uL Hemoglobin 14.5 12.2-16.2 g/dL Hematocrit 42.9 36.0-46.0 % Mean Corpuscular Volume 80.5 80.0-100.0 fL Mean Corpuscular Hemoglobin 27.2 L 28.0-32.0 pg Mean Corpuscular Hemoglobin Concent 33.7 32.0-36.0 g/dL Red Cell Distribution Width 14.4 H 11.8-14.3 % Platelet Count 253 140-450 10^3/uL Mean Platelet Volume 8.3 6.9-10.8 fL Neutrophils (%) (Auto) 64.5 37.0-80.0 % Lymphocytes (%) (Auto) 23.1 10.0-50.0 % Monocytes (%) (Auto) 5.6 0.0-12.0 % Eosinophils (%) (Auto) 5.6 0.0-7.0 % Basophils (%) (Auto) 1.2 0.0-2.0 % Neutrophils # (Auto) 4.7 1.6-8.6 10 ^3/uL Lymphocytes # (Auto) 1.7 0.4-5.4 10 ^3/uL Monocytes # (Auto) 0.4 0-1.3 10 ^3/uL Eosinophils # (Auto) 0.4 0-0.8 10 ^3/uL Basophils # (Auto) 0.1 0-0.2 10 ^3/uL Nucleated Red Blood Cells 0.0 % Prothrombin Time 10.9 9.3-11.8 sec Prothrombin Time INR 1.03 0.9-1.15 Sodium Level 141 136-145 mmol/L Potassium Level 3.8 3.5-5.1 mmol/L Chloride Level 107 98-107 mmol/L Carbon Dioxide Level 26 20-31 mmol/L Anion Gap 8 5-15 Blood Urea Nitrogen 7 L 9-23 mg/dL Creatinine 0.74 0.550-1.02 mg/dL Glomerular Filtration Rate Calc 86 >90 mL/min BUN/Creatinine Ratio 9.5 L 10.0-20.0 Serum Glucose 169 H 74-106 mg/dL Calcium Level 9.2 8.7-10.4 mg/dL Total Bilirubin 1.0 0.2-1.0 mg/dL Aspartate Amino Transferase (AST) 15 13-40 U/L Alanine Aminotransferase (ALT) 18 7-40 U/L Alkaline Phosphatase 125 H 46-116 U/L Total Protein 7.2 5.7-8.2 g/dL Albumin 4.1 3.2-4.8 g/dL Current Medications Medications (Trade) Dose Ordered Sig/Meme Route Start Time Stop Time Status Last Admin Acetaminophen (Tylenol Tablet) 650 mg ONCE ONCE PO 05/16/25 14:15 05/16/25 14:16 DC 05/16/25 14:56 Time of 1ST Reevaluation: 15:50 Reevaluation 1ST: Unchanged Patient Education/Counseling: Diagnosis, Treatment, Prognosis, Need For Follow Up Family Education/Counseling: No Family Present Comments Patient came to the hospital due to bilateral lower limb swelling and left leg p ain. Patient was vitally stable. Ultrasound performed ruled out DVT. CT scan showed left leg soft tissue swelling but could not exclude osteomyelitis. Patient was given acetaminophen Wound culture and wound consult ordered. Patient will be admitted for possible osteomyelitis, further workup and treatment. Departure 1 Departure Time of Disposition: 15:51 Impression: Primary Impression: Osteomyelitis Additional Impression: Cellulitis Disposition: ADMITTED INPATIENT Admit to: Med Surg Condition: Guarded Critical Care Note Critical Care Time?: Yes (45 min-critical care time only) Stability Stability form required: No Heart Score Heart Score: Heart Score Response (Comments) Value History N/A 0 EKG N/A 0 Age N/A 0 Risk Factors N/A 0 Troponin N/A 0 Total 0 CLARA CAMPOS RESDIENT May 16, 2025 14:02
[2025-05-16 14:14] LABS: Hematocrit 42.9 % (36.0-46.0); Hemoglobin 14.5 g/dL (12.2-16.2); Mean Corpuscular Hemoglobin 27.2 pg (28.0-32.0); Mean Corpuscular Volume 80.5 fL (80.0-100.0); Nucleated Red Blood Cells % 0.0 %
[2025-05-16 14:27] LABS: INR 1.03 (0.9-1.15); Prothrombin Time 10.9 sec (9.3-11.8)
[2025-05-16 14:28] LABS: Alanine Aminotransferase 18 U/L (7-40); Albumin 4.1 g/dL (3.2-4.8); Anion Gap 8 (5-15); BUN/Creatinine Ratio 9.5 (10.0-20.0); Bilirubin, Total 1.0 mg/dL (0.2-1.0); Calcium 9.2 mg/dL (8.7-10.4); Carbon Dioxide 26 mmol/L (20-31); Potassium 3.8 mmol/L (3.5-5.1); Sodium 141 mmol/L (136-145); Total Protein 7.2 g/dL (5.7-8.2)
[2025-05-16 14:30] LABS: Alkaline Phosphatase 125 U/L (46-116); Blood Urea Nitrogen 7 mg/dL (9-23); Chloride 107 mmol/L (98-107); Glucose 169 mg/dL (74-106)
--- NOTE | 2025-05-16 14:52 | DVH ---
Technique: Real-time ultrasound imaging, with color Doppler and compression of the the bilateral com mon femoral vein, femoral vein, greater saphenous vein, and popliteal vein. Indication: swollen Comparison: None Findings: There is normal compressibility and flow augmentation in all of the imaged deep veins. There are no f illing defects. Impression: No evidence of DVT in the the bilateral lower extremities.
[2025-05-16] MEDS: ACETAMINOPHEN 325 MG TAB PO ONE (14:56)
--- NOTE | 2025-05-16 15:19 | DVH ---
INDICATION: open wound, abscess osteomyelititis COMPARISON: None TECHNIQUE: CT of the right was performed without contrast. Volume transverse images were obtained and reconstructed in multiple planes using bone and soft tissue algorithms. CONTRAST: None Radiation Dose Information: CT Dose: CTDI volume is 7.75 mGy. Dose-length product is 204.15 mGy*cm FINDINGS: The alignment is normal. The joint spaces are normal. Internal fixation screws noted through the medial malleolus and along the distal fibula fixation plat e multiple internal fixation screws. The soft tissues demonstrate subcutaneous edema from the distal tibia and fibula region IMPRESSION: 1. No acute fracture or dislocation. 2. Subcutaneous edema from the distal tibia and fibula region. 3. Internal fixation screws noted through the medial malleolus and along the distal fibula fixation p late multiple internal fixation screws. 4. There are no bony erosions. 5. Can not exclude presence of osteomyelitis.
[2025-05-16] MEDS ORDERED: VANCOMYCIN PER PHARMACY 0 MG IV SCH (16:00)
[2025-05-16] MEDS: SODIUM CHLORIDE 0.9% 1,000 ML IV ONE (16:00)
[2025-05-16] MEDS: VANCOMYCIN 1GM/250ML KIT 250 ML IV SCH (19:17)
[2025-05-17] MEDS ORDERED: VANCOMYCIN PER PHARMACY 0 MG IV SCH (04:00)
[2025-05-17] MEDS ORDERED: ONDANSETRON HCL 4 MG/2 ML VIAL IV PRN (04:00)
[2025-05-17] MEDS ORDERED: DEXTROSE (50%) 50ML SYRG IV PRN (04:00)
--- NOTE | 2025-05-17 04:12 | DVHHP2 ---
History of Present Illness Reason for Visit: Leg swelling History of Present Illness 74-year-old female presents for evaluation of bilateral lower extremity swelling. Patient had a follow up appointment today. Patient reports [place] She reports noticing redness and an open wound to her left ankle. She was seen today and advised to present to the emergency department for further evaluation. Patient denies fever or chills. Past Medical History Hypertension, dyslipidemia and diabetes mellitus Past Surgical History , appendectomy, left ankle surgery Family History Noncontributory Smoke: No ALCOHOL: none Drugs: None Lives: with Family Review of Systems Review of Systems Review of systems are currently negative otherwise addressed in HPI. Allergies: Coded Allergies: Glipizide (Verified Allergy, Intermediate, 05/11/25) Ibuprofen (Verified Allergy, Unknown, 05/13/25) PER DR SG BLANTON VIA PHONE Losartan (Verified Allergy, Unknown, 05/13/25) PER DR SG BLANTON VIA PHONE Oxycodone (Verified Allergy, Unknown, 05/11/25) Medications Current Medications Medications Dose Ordered Sig/Meme Route Start Time Stop Time Status Last Admin Dose Admin Vancomycin HCl 0 ml @ 0 mls/hr UD IV 05/16/25 16:00 Exam Vital Signs Vital Signs Date Time Temp Pulse Resp B/P (MAP) Pulse Ox O2 Delivery O2 Flow Rate FiO2 05/17/25 03:47 98.9 97 18 157/87 (110) 97 98.9 Exam Gen: 74-year-old female in mild distress Skin: Warm, dry, normal color and texture, no rash. HEENT: Normocephalic atraumatic, mucous membranes moist and pink. Neck: Cervical and supraclavicular nodes normal without enlargement, trachea is midline, thyroid gland is normal without masses. Pulmonary: Clear to auscultation and percussion bilaterally. Cardiac: Regular rate and rhythm. No murmur Abdomen: Soft, nontender, nondistended, bowel sounds present all 4 quadrants, no guarding, no rigidity, no organomegaly. Extremities: No cyanosis, clubbing, left ankle lateral wound Neuro: Cranial nerves II through XII grossly intact, normal affect and speech, no focal motor deficits. Labs/Xrays ORDERING PHYSICIAN: CLARA CAMPOS RESDIJAD PROCEDURE(s): BLDVT - BiLat Lower DVT REASON: swollen ORDER NUMBER(s): [id number], ACCESSION NUMBER(s): [id number] Technique: Real-time ultrasound imaging, with color Doppler and compression of the the bilateral common femoral vein, femoral vein, greater saphenous vein, and popliteal vein. Indication: swollen Comparison: None Findings: There is normal compressibility and flow augmentation in all of the imaged deep veins. There are no filling defects. Impression: No evidence of DVT in the the bilateral lower extremities. RING PHYSICIAN: CLARA CAMPOS RESDIJAD PROCEDURE(s): LANCT - CT L ANKLE WO CONTRAST REASON: open wound, abscess? osteomyelititis? ORDER NUMBER(s): [id number], ACCESSION NUMBER(s): [id number] INDICATION: open wound, abscess osteomyelititis COMPARISON: None TECHNIQUE: CT of the right was performed without contrast. Volume transverse images were obtained and reconstructed in multiple planes using bone and soft tissue algorithms. CONTRAST: None Radiation Dose Information: CT Dose: CTDI volume is 7.75 mGy. Dose-length product is 204.15 mGy*cm FINDINGS: The alignment is normal. The joint spaces are normal. Internal fixation screws noted through the medial malleolus and along the distal fibula fixation plate multiple internal fixation screws. The soft tissues demonstrate subcutaneous edema from the distal tibia and fibula region IMPRESSION: 1. No acute fracture or dislocation. 2. Subcutaneous edema from the distal tibia and fibula region. 3. Internal fixation screws noted through the medial malleolus and along the distal fibula fixation plate multiple internal fixation screws. 4. There are no bony erosions. 5. Can not exclude presence of osteomyelitis. Labs Test 05/16/25 14:00 Range/Units White Blood Count 7.3 # 4.4-10.8 10^3/uL Red Blood Count 5.33 H 4.0-5.20 10^6/uL Hemoglobin 14.5 12.2-16.2 g/dL Hematocrit 42.9 36.0-46.0 % Mean Corpuscular Volume 80.5 80.0-100.0 fL Mean Corpuscular Hemoglobin 27.2 L 28.0-32.0 pg Mean Corpuscular Hemoglobin Concent 33.7 32.0-36.0 g/dL Red Cell Distribution Width 14.4 H 11.8-14.3 % Platelet Count 253 140-450 10^3/uL Mean Platelet Volume 8.3 6.9-10.8 fL Neutrophils (%) (Auto) 64.5 37.0-80.0 % Lymphocytes (%) (Auto) 23.1 10.0-50.0 % Monocytes (%) (Auto) 5.6 0.0-12.0 % Eosinophils (%) (Auto) 5.6 0.0-7.0 % Basophils (%) (Auto) 1.2 0.0-2.0 % Neutrophils # (Auto) 4.7 1.6-8.6 10 ^3/uL Lymphocytes # (Auto) 1.7 0.4-5.4 10 ^3/uL Monocytes # (Auto) 0.4 0-1.3 10 ^3/uL Eosinophils # (Auto) 0.4 0-0.8 10 ^3/uL Basophils # (Auto) 0.1 0-0.2 10 ^3/uL Nucleated Red Blood Cells 0.0 % Prothrombin Time 10.9 9.3-11.8 sec Prothrombin Time INR 1.03 0.9-1.15 Sodium Level 141 136-145 mmol/L Potassium Level 3.8 3.5-5.1 mmol/L Chloride Level 107 98-107 mmol/L Carbon Dioxide Level 26 20-31 mmol/L Anion Gap 8 5-15 Blood Urea Nitrogen 7 L 9-23 mg/dL Creatinine 0.74 0.550-1.02 mg/dL Glomerular Filtration Rate Calc 86 >90 mL/min BUN/Creatinine Ratio 9.5 L 10.0-20.0 Serum Glucose 169 H 74-106 mg/dL Calcium Level 9.2 8.7-10.4 mg/dL Total Bilirubin 1.0 0.2-1.0 mg/dL Aspartate Amino Transferase (AST) 15 13-40 U/L Alanine Aminotransferase (ALT) 18 7-40 U/L Alkaline Phosphatase 125 H 46-116 U/L Total Protein 7.2 5.7-8.2 g/dL Albumin 4.1 3.2-4.8 g/dL SEPSIS Sepsis Screen Date sepsis recognized/suspect: May 16, 2025 Time Sepsis recognized/suspect: 1251 Recent Procedure: No On Antibiotic Therapy: No Respiratory Rate >20: No Heart Rate >90: No Temp<36 C (96.8 F) or >38.3 C: No SBP <90 or MAP <65 mmHG: No New Acute Mental Status Change: No Is the patient on CPAP, BIPAP,: No Physician Orders * Orthopedic Consult (05/17/25 03:58) Ceftriaxone Ivpb Rocephin (05/17/25 09:00) Vancomycin (05/17/25 04:00) Consistent Carb(Ccho)Diabetes (05/17/25 Breakfast) Glucose Blood (Accu-Chek Comfort Curve T (05/17/25 07:00) Mild Sliding Scale (05/17/25 07:00) Dextrose 50% Syringe (05/17/25 04:00) Admit (05/17/25 03:58) Hydrocodone-Acet 5/325mg Tab (Denhoff 5/32 (05/17/25 04:00) Ondansetron Hcl (Zofran) (05/17/25 04:00) Enoxaparin Sodium (Lovenox) (05/17/25 10:00) Condition: Stable (05/17/25 03:58) Acetaminophen Tablet (Tylenol Tablet) (05/17/25 04:00) Bedrest With Bathroom Privileg (05/17/25 03:58) Basic Metabolic Panel (05/17/25 03:58) Complete Blood Count (05/17/25 03:58) Vital Signs Date Time Temp Pulse Resp B/P (MAP) Pulse Ox O2 Delivery O2 Flow Rate FiO2 05/17/25 03:47 98.9 97 18 157/87 (110) 97 98.9 05/16/25 20:17 99 20 126/76 (93) 98 Medications Medications Dose Ordered Sig/Meme Route Start Time Stop Time Status Last Admin Dose Admin Vancomycin HCl 250 ml @ 250 mls/hr Q1H IV 05/16/25 16:30 05/16/25 18:29 DC 05/16/25 19:17 250 MLS/HR Assessment/Plan Assessment/Plan Assessment Left lower extremity cellulitis with open wound ? Left ankle osteomyelitis Diabetes mellitus Hypertension Plan Admit the patient to Med surge to the hospitalist Orthopedic consultation Wound consult Rocephin/vancomycin Wound culture pending Resume home medications Continue treatment per orders. Plan discussed with: Patient My Orders Orders - TOI SAVAGE Procedure Category Date Status Time * Orthopedic Consult CONS 05/17/25 Verified 03:58 Ceftriaxone Ivpb PHA 05/17/25 Verified Rocephin 09:00 Vancomycin PHA 05/17/25 Verified 04:00 Consistent DIET 05/17/25 Verified Carb(Ccho)Diabetes Breakfast Glucose Blood PHA 05/17/25 Verified (Accu-Chek Comfort 07:00 Mild Sliding Scale PHA 05/17/25 Verified 07:00 Dextrose 50% Syringe PHA 05/17/25 Verified 04:00 Admit ADMIT 05/17/25 Verified 03:58 Hydrocodone-Acet PHA 05/17/25 Verified 5/325mg Tab (Denhoff 04:00 Ondansetron Hcl PHA 05/17/25 Verified (Zofran) 04:00 Enoxaparin Sodium PHA 05/17/25 Verified (Lovenox) 10:00 Condition: Stable HARRY 05/17/25 Verified 03:58 Acetaminophen Tablet PHA 05/17/25 Verified (Tylenol Tablet) 04:00 Bedrest With Bathroom HARRY 05/17/25 Verified Privileg 03:58 Basic Metabolic Panel LAB 05/17/25 Verified 03:58 Complete Blood Count LAB 05/17/25 Verified 03:58 Date of Service: May 17, 2025 Billing Provider: TOI SAVAGE Common Visit Codes: [id number] INP/OBS CARE (MOD) TOI SAVAGE May 17, 2025 04:12
--- NOTE | 2025-05-17 04:35 | DVH ---
CHEST RADIOGRAPH Indication: sob Technique: Single frontal view of the chest was obtained COMPARISON: XY CHEST XRAY 1 VIEW on DOS: 05/12/25 FINDINGS: Lines and Tubes: None Lungs: Clear Pleura: No effusion. No pneumothorax. Cardiomediastinal contours: Unremarkable Bones: Unremarkable IMPRESSION: 1. No acute disease.
[2025-05-17] MEDS: VANCOMYCIN 1GM/250ML KIT 250 ML IV SCH ×2 (04:47→17:50)
[2025-05-17 06:10] LABS: Hematocrit 44.9 % (36.0-46.0); Hemoglobin 14.5 g/dL (12.2-16.2); Mean Corpuscular Hemoglobin 26.7 pg (28.0-32.0); Mean Corpuscular Volume 82.7 fL (80.0-100.0); Nucleated Red Blood Cells % 0.1 %
[2025-05-17 06:17] LABS: Potassium 4.0 mmol/L (3.5-5.1); Sodium 141 mmol/L (136-145)
[2025-05-17 06:18] LABS: Anion Gap 10 (5-15); Calcium 8.8 mg/dL (8.7-10.4); Carbon Dioxide 23 mmol/L (20-31)
[2025-05-17 06:23] LABS: BUN/Creatinine Ratio 7.0 (10.0-20.0)
[2025-05-17 06:26] LABS: Blood Urea Nitrogen 6 mg/dL (9-23); Chloride 108 mmol/L (98-107); Glucose 304 mg/dL (74-106)
[2025-05-17] MEDS: ACCU-CHEK COMFORT CURVE STRIP VI SCH (07:00)
[2025-05-17] MEDS: InsuLIN REG 1unit/0.01ml Soln (100units/ml) SC SCH (07:00)
--- NOTE | 2025-05-17 09:11 | DVH ---
CLINICAL INDICATION: pain/swelling/ h/o surgery TECHNIQUE: 2 radiographic views of the left ankle were obtained. Comparison: None FINDINGS/IMPRESSION: There is no evidence of acute fracture or dislocation. The visualized joint space is well maintained. Post-surgical changes in the distal tibia and distal f ibula. Soft tissue swelling about the left ankle. Small plantar calcaneal enthesophyte. The alignment is anatomical. There is no radiopaque foreign body.
--- NOTE | 2025-05-17 09:53 | DVHINCON2 ---
Date of service: May 17, 2025 Referring Physician ED Reason for Consultation left ankle postop infection History of Present Illness 74-year-old female presents for evaluation of bilateral lower extremity swelling. Patient was seen in urgent care. Patient reports having a left ankle ORIF on 04/10 in [place]. She also complains of right ankle pain since she suffered fall prior to surgery. States no eval right side yet. She reports noticing redness and an open wound to her left ankle. She was seen today and advised to present to the emergency department for further evaluation. Patient denies fever or chills. States her diabetes is normally controlled at A1c of 6 but recently she has had difficulty Past Medical History Hypertension, dyslipidemia and diabetes mellitus Past Surgical History , appendectomy, left ankle surgery Family History Noncontributory Smoke: No ALCOHOL: none Drugs: None Lives: with Family. She is resident of [place] but came here to children's house to help her recover form injury. Family History: Patient reports no known family medical history. Allergies: Coded Allergies: Glipizide (Verified Allergy, Intermediate, 05/11/25) Ibuprofen (Verified Allergy, Unknown, 05/13/25) PER DR SG BLANTON VIA PHONE Losartan (Verified Allergy, Unknown, 05/13/25) PER DR SG BLANTON VIA PHONE Oxycodone (Verified Allergy, Unknown, 05/11/25) Allergies metformin - tongue swelling Home Meds Active Scripts Hydrocodone-Acetaminophen (Hydrocodone Bitartrate/AC 5-325 mg) 1 Tab Tab, 1 TAB PO Q4HPRN PRN, #20 TAB Prov:FRANNY BETTENCOURT MD 05/13/25 Epinephrine (Anaphylaxis) (Auvi-Q) 0.1 Mg/0.1 Ml Inj, 0.1 MG IJ O PRN for 1 Day, #1 INJ Prov:FRANNY BETTENCOURT MD 05/13/25 Amlodipine Besylate (NORVASC TABLET) 5 Mg Tb, 1 TAB PO DAILY, #30 TAB 5 Refills Prov:FRANNY BETTENCOURT MD 05/13/25 Current Medications Current Medications Medications (Trade) Dose Ordered Sig/Meme Route PRN Reason Start Time Stop Time Status Last Admin Vancomycin HCl 0 ml @ 0 mls/hr UD IV 05/16/25 16:00 Vancomycin HCl 250 ml @ 250 mls/hr Q1H IV 05/16/25 16:30 05/16/25 18:29 DC 05/16/25 19:17 Ceftriaxone Sodium 50 ml @ 100 mls/hr DAILY@09 IV 05/17/25 09:00 Vancomycin HCl 0 ml @ 0 mls/hr UD IV 05/17/25 04:00 05/17/25 04:15 DC Diagnostic Test (Pha) (Accu-Chek Comfort Curve T) 1 strip ACHS 05/17/25 07:00 Insulin Human Regular (InsuLIN R) ACHS SC 05/17/25 07:00 Dextrose 50 ml UD PRN IV Blood Sugar LESS THAN 60 05/17/25 04:00 Acetaminophen/ Hydrocodone Bitart (Ripley 5/325MG Tab) 1 tab Q4HP PRN PO MODERATE PAIN (4-6 PAIN SCALE) 05/17/25 04:00 Ondansetron HCl (Zofran) 4 mg Q4HP PRN IV NAUSEA / VOMITING 05/17/25 04:00 Enoxaparin Sodium (Lovenox) 40 mg DAILY SC 05/17/25 10:00 Acetaminophen (Tylenol Tablet) 650 mg Q6HP PRN PO PAIN SCALE 1-3 OR TEMP>100.4 05/17/25 04:00 Amlodipine Besylate (Norvasc Tablet) 5 mg DAILY PO 05/17/25 10:00 Vancomycin HCl 250 ml @ 250 mls/hr Q1H IV 05/17/25 04:45 05/17/25 05:44 DC 05/17/25 04:47 Review of Systems neg 10 point review except as above Vital Signs Vital Signs Date Time Temp Pulse Resp B/P (MAP) Pulse Ox O2 Delivery O2 Flow Rate FiO2 05/17/25 03:47 98.9 97 18 157/87 (110) 97 98.9 Physical Exam Well-developed well-nourished female in no acute distress Alert and oriented x4 Examination of her lower extremities reveals she has moderate edema of the right foot and ankle and mild edema of the left foot and ankle Right ankle skin is intact no erythema Limited range of motion with pain No instability on stress Diffuse tenderness medially and laterally Intact sensation and pulses intact Left ankle skin healed medial wound, left lateral wound with 2 cm x 1 cm dehiscence with some early granulation tissue. Serous drainage, no exposed bone or metal Limited range of motion with pain Sensation and pulses intact CT scan of the left ankle reveals medial and lateral hardware with fractures in good alignment no evidence of abscess or bone changes to suggest osteomyelitis Labs/Diagnostic Data Labs Test 05/17/25 05:03 05/16/25 14:00 Range/Units White Blood Count 8.2 4.4-10.8 10^3/uL Red Blood Count 5.43 H 4.0-5.20 10^6/uL Hemoglobin 14.5 12.2-16.2 g/dL Hematocrit 44.9 36.0-46.0 % Mean Corpuscular Volume 82.7 80.0-100.0 fL Mean Corpuscular Hemoglobin 26.7 L 28.0-32.0 pg Mean Corpuscular Hemoglobin Concent 32.3 32.0-36.0 g/dL Red Cell Distribution Width 14.5 H 11.8-14.3 % Platelet Count 248 140-450 10^3/uL Mean Platelet Volume 8.8 6.9-10.8 fL Neutrophils (%) (Auto) 67.5 37.0-80.0 % Lymphocytes (%) (Auto) 19.6 10.0-50.0 % Monocytes (%) (Auto) 6.4 0.0-12.0 % Eosinophils (%) (Auto) 5.2 0.0-7.0 % Basophils (%) (Auto) 1.3 0.0-2.0 % Neutrophils # (Auto) 5.5 1.6-8.6 10 ^3/uL Lymphocytes # (Auto) 1.6 0.4-5.4 10 ^3/uL Monocytes # (Auto) 0.5 0-1.3 10 ^3/uL Eosinophils # (Auto) 0.4 0-0.8 10 ^3/uL Basophils # (Auto) 0.1 0-0.2 10 ^3/uL Nucleated Red Blood Cells 0.1 % Sodium Level 141 136-145 mmol/L Potassium Level 4.0 3.5-5.1 mmol/L Chloride Level 108 H 98-107 mmol/L Carbon Dioxide Level 23 20-31 mmol/L Anion Gap 10 5-15 Blood Urea Nitrogen 6 L 9-23 mg/dL Creatinine 0.86 0.550-1.02 mg/dL Glomerular Filtration Rate Calc 72 >90 mL/min BUN/Creatinine Ratio 7.0 L 10.0-20.0 Serum Glucose 304 H 74-106 mg/dL Calcium Level 8.8 8.7-10.4 mg/dL B-Type Natriuretic Peptide 17.40 0-100 pg/mL Random Vancomycin Level 13.0 H 5-10 ug/mL Prothrombin Time 10.9 9.3-11.8 sec Prothrombin Time INR 1.03 0.9-1.15 Total Bilirubin 1.0 0.2-1.0 mg/dL Aspartate Amino Transferase (AST) 15 13-40 U/L Alanine Aminotransferase (ALT) 18 7-40 U/L Alkaline Phosphatase 125 H 46-116 U/L Total Protein 7.2 5.7-8.2 g/dL Albumin 4.1 3.2-4.8 g/dL Assessment Left ankle s/p open reduction internal fixation by malleolar fracture with lateral wound dehiscence Questionable cellulitis Right ankle pain Plan/Recommendation The plan at this time will be for IV antibiotics and local wound care. No indication for surgical intervention at this time. X-rays left ankle are pending. I will order x-rays of the right ankle to rule out fracture Plan discussed with: Patient, Other CANDACE LOCKHART MD May 17, 2025 09:53
[2025-05-17 10:00] VITALS: BP 146/87; PULSE 94; RESP 17; TEMP 97.5; O2SAT 98
[2025-05-17] MEDS: HYDROcodone-ACET 5/325MG TAB PO PRN (10:10)
[2025-05-17] MEDS: ENOXAPARIN SOD 40 MG/0.4 ML SYRINGE SC SCH (10:18)
[2025-05-17] MEDS ORDERED: GABA-1250 PO (11:16)
--- NOTE | 2025-05-17 12:03 | DVH ---
Indication: pain post fall Technique: XY R ANKLE 2 VIEW XRAYXY Comparison: None FINDINGS/IMPRESSION: No radiographic evidence for acute fracture or dislocation. Diffuse right ankle soft tissue edema mo st pronounced along the lateral malleolus. Inferior calcaneal spurring. Achilles enthesopathy.
[2025-05-17 13:23] VITALS: BP 150/86; PULSE 91; RESP 17; TEMP 97.7; O2SAT 97
[2025-05-17] MEDS: INSULIN LANTUS (GLARGINE) 1 /0.01ml (100units/ml) SC ONE (14:15)
--- NOTE | 2025-05-17 14:21 | DVHPN2 ---
Assessment/Plan Assessment/Plan progress note 74 yo F s/p left ankle ORIF 04/24 admitted with wound dehiscence. seen by ortho physical exam aox4 obese perlla MMM catb s1 s2 rrr abdomen soft nontender b/l le edema, L wound dehisence lasb ekg imagin reviewed assessment and plan wound dehisence IDDM chronic pain htn le edema likely venous insuf ceft and vanc pain mangement on treciba 58, will conver to lantus 55 and ISS resume home meds start hctz diet cardiac dvt ppx lovenox full code Plan discussed with: Patient My Orders Orders - DONNELL SEGUNDO MD Procedure Category Date Status Time Hydrochlorothiazide PHA 05/17/25 Transmitted Tablet (Hydrochlorot 14:15 Hydrochlorothiazide PHA 05/18/25 Transmitted Tablet (Hydrochlorot 10:00 Insulin Lantus PHA 05/17/25 Transmitted (Glargine) (Lantus) 14:15 Insulin Lantus PHA 05/18/25 Transmitted (Glargine) (Lantus) 10:00 Insulin Lispro PHA 05/17/25 Transmitted (Human) (Humalog) 17:00 Date of Service: May 17, 2025 Billing Provider: DONNELL SEGUNDO MD Common Visit Codes: [id number] INP/OBS CARE(HIGH) DONNELL SEGUNDO MD May 17, 2025 14:21
[2025-05-17 17:00] VITALS: BP 121/71; PULSE 88; RESP 17; TEMP 98.3; O2SAT 98
[2025-05-17] MEDS: INSULIN LISPRO (HUMAN) 100 UNITS/ML ML SC SCH (17:00)
[2025-05-17] MEDS: hydroCHLOROthiazide 25 MG TAB PO ONE (17:36)
[2025-05-17 21:00] VITALS: BP 164/66; PULSE 97; RESP 16; TEMP 98.4; O2SAT 97
[2025-05-17] MEDS: GABAPENTIN 300 MG CAP PO SCH (21:30)
[2025-05-17 22:00] VITALS: RESP 20
[2025-05-17 22:45] VITALS: BP 158/88; PULSE 93; RESP 20; TEMP 98.6; O2SAT 98
[2025-05-18] VITALS (8 sets, daily range): BP systolic 110–167; BP diastolic 64–79; PULSE 79–100; RESP 17–18; TEMP 96.9–98.6; O2SAT 95–98
[2025-05-18 07:38] LABS: Hematocrit 43.1 % (36.0-46.0); Hemoglobin 14.5 g/dL (12.2-16.2); Mean Corpuscular Hemoglobin 27.2 pg (28.0-32.0); Mean Corpuscular Volume 80.9 fL (80.0-100.0); Nucleated Red Blood Cells % 0.1 %
--- NOTE | 2025-05-18 09:34 | DVHPN2 ---
Assessment/Plan Assessment/Plan progress note 74 yo F s/p left ankle ORIF 04/24 admitted with wound dehiscence. seen by ortho seen dawn, c/w iv abx physical exam aox4 obese perlla MMM catb s1 s2 rrr abdomen soft nontender b/l le edema, L wound dehisence lasb ekg imagin reviewed assessment and plan wound dehisence IDDM chronic pain htn le edema likely venous insuf ceft and vanc pain mangement on treciba 58, will conver to lantus 55 and ISS resume home meds start hctz diet cardiac dvt ppx lovenox full code Plan discussed with: Patient My Orders Orders - DONNELL SEGUNDO MD Procedure Category Date Status Time Hydrochlorothiazide PHA 05/18/25 In Process Tablet (Hydrochlorot 10:00 Insulin Lantus PHA 05/18/25 In Process (Glargine) (Lantus) 10:00 Insulin Lispro PHA 05/17/25 In Process (Human) (Humalog) 17:00 Gabapentin Capsule PHA 05/17/25 In Process (Neurontin Capsule) 22:00 Cleanse Wound With HARRY 05/17/25 In Process Wound Clean 14:48 * Dietary Consult CONS 05/17/25 Transmitted 19:40 Date of Service: May 18, 2025 Billing Provider: DONNELL SEGUNDO MD Common Visit Codes: [id number] INP/OBS CARE(HIGH) DONNELL SEGUNDO MD May 18, 2025 09:34
[2025-05-18] MEDS: hydroCHLOROthiazide 25 MG TAB PO SCH (10:08)
[2025-05-18] MEDS: INSULIN LANTUS (GLARGINE) 1 /0.01ml (100units/ml) SC SCH (11:22)
[2025-05-19 01:00] VITALS: BP 100/51; PULSE 84; RESP 18; TEMP 98; O2SAT 94
[2025-05-19 05:00] VITALS: BP 110/65; PULSE 96; RESP 17; TEMP 97.9; O2SAT 93
[2025-05-19] MEDS: ACCU-CHEK COMFORT CURVE STRIP VI SCH ×2 (07:00→11:20)
[2025-05-19] MEDS ORDERED: InsuLIN REG 1unit/0.01ml Soln (100units/ml) SC SCH ×5 (07:00→22:00)
[2025-05-19] MEDS ORDERED: DEXTROSE (50%) 50ML SYRG IV PRN ×2 (07:15)
[2025-05-19] MEDS ORDERED: HYDR25TA5 PO ×2 (10:20→14:00)
[2025-05-19] MEDS ORDERED: AUG875T PO ×2 (10:20→14:00)
[2025-05-19] MEDS: INSULIN LISPRO (HUMAN) 100 UNITS/ML ML SC SCH (11:42)
[2025-05-19 13:00] VITALS: BP 141/77; PULSE 89; RESP 18; TEMP 98.5; O2SAT 97
[2025-05-19 15:14] VITALS: BP 110/65; TEMP 36.9
[2025-05-19 17:00] VITALS: BP 119/71; PULSE 89; RESP 17; TEMP 98.4; O2SAT 96
[2025-05-19] MEDS: ACETAMINOPHEN 325 MG TAB PO PRN (20:08)
--- NOTE | 2025-05-19 20:48 | DVHDS2 ---
Discharge Summary Date of Admission May 17, 2025 at 03:58 Date of Discharge: May 19, 2025 Labs/Diagnostic Data: Laboratory Results Test 05/19/25 19:03 05/19/25 16:53 05/19/25 05:27 05/18/25 06:02 Vancomycin Level Trough 9.5 ug/mL (5-10) POC Glucose 209 mg/dl (70-106) Creatinine 0.95 mg/dL (0.550-1.02) Glomerular Filtration Rate Calc 64 mL/min (>90) White Blood Count 7.2 10^3/uL (4.4-10.8) Red Blood Count 5.33 10^6/uL (4.0-5.20) Hemoglobin 14.5 g/dL (12.2-16.2) Hematocrit 43.1 % (36.0-46.0) Mean Corpuscular Volume 80.9 fL (80.0-100.0) Mean Corpuscular Hemoglobin 27.2 pg (28.0-32.0) Mean Corpuscular Hemoglobin Concent 33.7 g/dL (32.0-36.0) Red Cell Distribution Width 14.5 % (11.8-14.3) Platelet Count 254 10^3/uL (140-450) Mean Platelet Volume 9.1 fL (6.9-10.8) Neutrophils (%) (Auto) 65.2 % (37.0-80.0) Lymphocytes (%) (Auto) 20.2 % (10.0-50.0) Monocytes (%) (Auto) 8.1 % (0.0-12.0) Eosinophils (%) (Auto) 5.5 % (0.0-7.0) Basophils (%) (Auto) 1.0 % (0.0-2.0) Neutrophils # (Auto) 4.7 10 ^3/uL (1.6-8.6) Lymphocytes # (Auto) 1.4 10 ^3/uL (0.4-5.4) Monocytes # (Auto) 0.6 10 ^3/uL (0-1.3) Eosinophils # (Auto) 0.4 10 ^3/uL (0-0.8) Basophils # (Auto) 0.1 10 ^3/uL (0-0.2) Nucleated Red Blood Cells 0.1 % Test 05/17/25 05:03 05/16/25 14:00 Sodium Level 141 mmol/L (136-145) Potassium Level 4.0 mmol/L (3.5-5.1) Chloride Level 108 mmol/L (98-107) Carbon Dioxide Level 23 mmol/L (20-31) Anion Gap 10 (5-15) Blood Urea Nitrogen 6 mg/dL (9-23) BUN/Creatinine Ratio 7.0 (10.0-20.0) Serum Glucose 304 mg/dL (74-106) Calcium Level 8.8 mg/dL (8.7-10.4) B-Type Natriuretic Peptide 17.40 pg/mL (0-100) Random Vancomycin Level 13.0 ug/mL (5-10) Prothrombin Time 10.9 sec (9.3-11.8) Prothrombin Time INR 1.03 (0.9-1.15) Total Bilirubin 1.0 mg/dL (0.2-1.0) Aspartate Amino Transferase (AST) 15 U/L (13-40) Alanine Aminotransferase (ALT) 18 U/L (7-40) Alkaline Phosphatase 125 U/L (46-116) Total Protein 7.2 g/dL (5.7-8.2) Albumin 4.1 g/dL (3.2-4.8) Other Laboratory Tests 05/19/25 05:27 05/18/25 06:02 05/17/25 05:03 Brief Hx & Hospital Course: 74 yo F s/p left ankle ORIF 04/24 admitted with wound dehiscence. seen by ortho, cleared to be dc with oral abx,. boot reaplied. resume home insuloin. stable to dc home Condition at Discharge: Good Final Diagnosis/Problems List wound dehisence IDDM chronic pain htn le edema likely venous insuf Discharge Disposition: Home Discharge Instruct/Medications Diet: Consistent carbohydrate, Cardiac 2g Na,low cholest Activity: No Restrictions, As Tolerated Medications: augmentin Scheduled Amlodipine Besylate (Norvasc Tablet), 1 TAB PO DAILY Amoxicillin & Pot Clavulanate (Augmentin Tablet), 875 MG PO BID Gabapentin (Gabapentin), 1 CAP PO TID, (Reported) Hctz (Hydrochlorothiazide), 25 MG PO DAILY Scheduled PRN Epinephrine (Anaphylaxis) (Auvi-Q), 0.1 MG IJ O PRN Hydrocodone-Acetaminophen (Hydrocodone Bitartrate/AC 5-325 mg), 1 TAB PO Q4HPRN PRN Discharge Statement: "Patient was advised to return to the ER or call 911 if any headaches, dizziness, shortness of breath, chest pain, abdominal pain, bleeding, fevers, or worsening of medical condition. Patient was counseled about treatment plan, medications, possible side effects, patientverbalized understanding. All questions were answered to the best of my ability. This discharge took greater then 30 minutes in planning, reviewing documentation, counseling the patient, and discussing with other team members." ASSESSMENT ASSESSMENT Assessment wound dehisence Date of Service: May 19, 2025 Billing Provider: DONNELL SEGUNDO MD Common Visit Codes: [id number] DISCH DAY >30min DONNELL SEGUNDO MD May 19, 2025 20:48
[2025-05-19] MEDS ORDERED: VANCOMYCIN 1GM/250ML KIT 250 ML IV SCH (21:00)
== END 2025-05-19 21:15 | disposition home or self-care (01) | DRG 920 ==
LOC: ER 12:43 → OVERFLOW 05-17 03:58 → CENTRAL 05-17 21:53
PROVIDERS: ADMIT Student in an Organized Health Care Education/Training Program; ATTEND Student in an Organized Health Care Education/Training Program
DX: T81.30XA Disruption of wound, unspecified, initial encounter (principal); L03.116 Cellulitis of left lower limb; I10 Essential (primary) hypertension; G89.29 Other chronic pain; E78.5 Hyperlipidemia, unspecified; E66.9 Obesity, unspecified; I87.2 Venous insufficiency (chronic) (peripheral); Z68.34 Body mass index [BMI] 34.0-34.9, adult; Z79.4 Long term (current) use of insulin; Z88.5 Allergy status to narcotic agent; Z88.6 Allergy status to analgesic agent; Z88.8 Allergy status to other drugs, medicaments and biological substances; Z79.899 Other long term (current) drug therapy; Y92.89 Other specified places as the place of occurrence of the external cause; Y83.8 Other surgical procedures as the cause of abnormal reaction of the patient, or of later complication, without mention of misadventure at the time of the procedure
CPT/HCPCS: 36415; 71045; 73600; 73700; 80048; 80053; 80202; 82565; 82962; 83880; 85025; 85610; 93970; 96365; 99291; G0378; J1815

== ENCOUNTER → 2025-06-07 | Outpatient (CLI) | payer OTHER ==
[~2025-06-07] MED LIST changes: +AUG875T PO; +GABA-1250 PO; +HYDR25TA5 PO
[2025-06-07 12:00] LABS: Mean Corpuscular Hemoglobin 26.7 pg (28.0-32.0)
[2025-06-07 12:01] LABS: Hematocrit 42.1 % (36.0-46.0); Hemoglobin 13.9 g/dL (12.2-16.2); Mean Corpuscular Volume 80.6 fL (80.0-100.0); Nucleated Red Blood Cells % 0.1 %
[2025-06-07 13:32] LABS: Alanine Aminotransferase 10 U/L (7-40); Alkaline Phosphatase 114 U/L (46-116); Anion Gap 11 (5-15); BUN/Creatinine Ratio 11.8 (10.0-20.0); Blood Urea Nitrogen 11 mg/dL (9-23); Calcium 8.8 mg/dL (8.7-10.4); Carbon Dioxide 27 mmol/L (20-31); Chloride 101 mmol/L (98-107); Sodium 139 mmol/L (136-145); Total Protein 7.2 g/dL (5.7-8.2); Triglycerides 93 mg/dL (< 150)
[2025-06-07 13:33] LABS: Albumin 4.1 g/dL (3.2-4.8); Cholesterol 138 mg/dL (< 200); HDL Cholesterol 48 mg/dL (40-59)
[2025-06-07 13:34] LABS: Bilirubin, Total 0.8 mg/dL (0.2-1.0)
[2025-06-07 13:45] LABS: Glucose 134 mg/dL (74-106); Potassium 3.4 mmol/L (3.5-5.1)
== END | disposition home or self-care (01) ==
LOC: LAB 10:40
PROVIDERS: ATTEND Student in an Organized Health Care Education/Training Program
DX: I10 Essential (primary) hypertension (principal); E11.65 Type 2 diabetes mellitus with hyperglycemia
CPT/HCPCS: 36415; 80053; 80061; 82043; 83036; 84443; 85025